=== PATIENT | male | born 1945 | race Caucasian/White ===

== ENCOUNTER → 2016-11-18 | Outpatient (CLI) | payer BC, MEDICARE ==
[~2016-11-18] MED LIST: ASPIRIN 81MG TA81 MG PO; FOLIC ACID0.8 MG PO; LISINOPRIL10 MG PO; METFORMIN HYDR500 M1 PO; MULTIVITAMIN1 TA1 PO; SIMVASTATIN40 MG PO
[2016-11-18 10:00] LABS: BUN 20 mg/dL (7-18)
[2016-11-18 10:02] LABS: GFR (ESTIMATED) 74 ML/MIN (>60)
== END ==
LOC: LAB 09:05
PROVIDERS: Internal Medicine Adolescent Medicine
DX: E11.9 Type 2 diabetes mellitus without complications (principal)

== ENCOUNTER 2017-05-31 07:43 | Day surgery (SDC) | payer BC, MEDICARE ==
[~2017-05-31] VITALS: Ht 182.9 cm; Wt 99.8 kg
--- NOTE | 2017-05-31 09:35 | Operative Note ---
Surgeon/Diagnoses Surgeon/Industrial Organizational Psychologist(s) Date of procedure: 05/31/17 Surgeon: MD Tracy Finn Diagnoses Pre-op diagnosis: History of colon polyps Post-op diagnosis Colon polyps Internal and external hemorrhoids Procedure Procedure Procedure: Colonoscopy with polypectomy Indications: NILSON MOY is a 71 year-old Male with a history of multiple complex colon polyps. Findings: Bowel preparation moderate Fairly severe colonic spasticity Multiple complex polyps (see specimens) Procedure Description: After informed consent was obtained, the patient was taken to the endoscopy suite. Monitored anesthesia care ensued after he was transferred to the LEFT lateral decubitus position. Digital rectal exam revealed fairly significant hemorrhoidal tags and cushions with no thrombosis or active bleeding. The colonoscope was placed in position. The entire colon was evaluated. Bowel preparation was moderate with large volume irrigation and suctioning used to somewhat improved visualization. Fairly severe colonic spasticity was also encountered. A complex polyp of the ascending colon was excised by way snare polypectomy. A lobulated RIGHT colon polyp that was 8 mm in diameter was excised by way of snare. A sessile polyp of the hepatic flexure was excised with cold biopsy forceps, as well as snare. A splenic flexure polyp was also excised with cold biopsy forceps. A complex pedunculated polyp at [address] snare. A cluster polyps around 15 cm was biopsied and many were excised by way of biopsy forceps. A polyp at 10 cm was excised with cold biopsy forceps. The colonoscope was carefully removed and the patient was transferred to recovery. EBL (ml): 1 Anesthesia: Monitored anesthesia care Complications: No immediate Specimens: Complex ascending colon polyp Lobulated RIGHT colon polyp (8 mm) Sessile hepatic flexure polyp Splenic flexure polyp Complex pedunculated polyp at 25 cm Cluster polyps at 15 cm Polyp at 10 cm Disposition Disposition: Stable to recovery from where he will be discharged home. He will follow up in one week. Repeat colonoscopy is pending pathology but will likely be between 1-2 years secondary to history of polyps, size/nature/number of polyps, and spasticity. at [id number]
[2017-05-31 10:34] VITALS: BP 138/76
== END 2017-05-31 10:20 | disposition home or self-care (01) ==
LOC: SDC 07:43
PROVIDERS: Surgery
PROC: 0DBF8ZX Excision of Right Large Intestine, Via Natural or Artificial Opening Endoscopic, Diagnostic (ICD-10-PCS; 2017-05-31)
PROC: 0DBE8ZX Excision of Large Intestine, Via Natural or Artificial Opening Endoscopic, Diagnostic (ICD-10-PCS; 2017-05-31)
PROC: 0DBK8ZX Excision of Ascending Colon, Via Natural or Artificial Opening Endoscopic, Diagnostic (ICD-10-PCS; principal; 2017-05-31 08:30)
DX: Z12.11 Encounter for screening for malignant neoplasm of colon (principal); Z86.010 Personal history of colon polyps; K63.5 Polyp of colon; K64.4 Residual hemorrhoidal skin tags; K64.8 Other hemorrhoids

== ENCOUNTER → 2017-07-13 | Outpatient (CLI) | payer BC, MEDICARE ==
[2017-07-13 10:34] LABS: BUN 15 mg/dL (7-18)
[2017-07-13 10:37] LABS: GFR (ESTIMATED) 74 ML/MIN (>60)
[2017-07-13 11:23] LABS: HEMOGLOBIN 13.3 g/dL (14.1-18.0); LYMPH # 2.4 K/mm3 (0.7-4.5); LYMPH % 42.8 % (10-50)
== END ==
LOC: LAB 08:59
PROVIDERS: Internal Medicine Adolescent Medicine
DX: E78.5 Hyperlipidemia, unspecified (principal); E11.9 Type 2 diabetes mellitus without complications; I25.10 Atherosclerotic heart disease of native coronary artery without angina pectoris